=== PATIENT | female | born 1970 | race Caucasian/White ===

== ENCOUNTER 2017-09-29 10:09 | Inpatient (IN) | payer OTHER ==
[~2017-09-29] VITALS: Ht 170.2 cm; Wt 99.5 kg
[2017-09-29] MEDS ORDERED: ROCEPHIN 2GM VIAL21 IJ (14:38)
[2017-09-29] MEDS ORDERED: D-2000 90 MG-201 TAB PO (14:39)
[2017-09-29] MEDS ORDERED: SENOKOT S 50 MG1 TAB PO (14:40)
[2017-09-29] MEDS ORDERED: B-12 100 MCG (14:40)
[2017-09-29] MEDS ORDERED: PROZAC60 MG (14:41)
[2017-09-29] MEDS ORDERED: MUCINEX 60600 MG/TA1 PO (14:41)
[2017-09-29] MEDS ORDERED: SOLU-MEDRO125 MG/21 IJ (14:42)
[2017-09-29] MEDS ORDERED: PROTONIX 40MG T40 MG PO (14:43)
[2017-09-29] MEDS ORDERED: DESYREL 100MG100 MG PO (14:43)
[2017-09-29] MEDS ORDERED: VIIBRYD40 MG PO (14:44)
[2017-09-29] MEDS ORDERED: ROBAXIN 50500 MG/TAB PO (14:50)
[2017-09-29] MEDS ORDERED: TYLENOL 325MG325 MG PO (14:51)
[2017-09-29] MEDS ORDERED: RT ALBUTER2.5 MG/0.5 IH (14:53)
[2017-09-29 16:45] VITALS: BP 121/73; PULSE 63; TEMP 98.4
[2017-09-29 16:47] VITALS: BP 121/76; PULSE 79; TEMP 98.4
[2017-09-29 19:21] VITALS: BP 104/63; PULSE 66; TEMP 98.4
[2017-09-29 23:20] VITALS: BP 123/71; PULSE 58; TEMP 98.2
[2017-09-30 03:30] VITALS: BP 124/71; PULSE 51; TEMP 97.9
[2017-09-30 06:59] LABS: MEAN CELL VOLUME 93 fl (80.0-100.0); MEAN CORPUSCULAR HGB CONC 33 g/dl (33.0-37.0); PLATELET COUNT 198 K/mm3 (130-400); RED BLOOD COUNT 3.83 M/mm3 (4.10-5.30); REDCELL DISTRIBUTION WIDTH-CV 12.8 % (11.5-14.5)
[2017-09-30 07:02] LABS: HEMATOCRIT 35.6 % (37.0-47.0); HEMOGLOBIN 11.7 g/dl (12.5-16.0); MEAN CORPUSCULAR HEMOGLOBIN 31 pg (27.0-31.0)
[2017-09-30 07:26] LABS: ALBUMIN 3.2 gm/dL (3.5-5.0); BILIRUBIN,TOTAL 0.3 mg/dL (0.0-1.0); C-REACTIVE PROTEIN 1.8 mg/dL (0.0-0.9); CALCIUM 8.7 mg/dL (8.4-10.2); CREATININE, serum 0.56 mg/dL (0.52-1.25); POTASSIUM 4.1 mmol/L (3.4-5.0); TOTAL PROTEIN 6.1 gm/dL (6.4-8.2)
[2017-09-30 07:39] VITALS: BP 105/58; PULSE 49; TEMP 97.9
[2017-09-30 08:35] LABS: BAND 24 % (0-10); HYPOCHROMIA 1+; LYMPHOCYTE 9 % (20.0-51.0); NEUTROPHILS 67 % (42.0-75.2); PLATELET ESTIMATE NORMAL (NORMAL)
[2017-09-30 08:36] LABS: ERYTHROCYTE SEDIMENTATION RATE 14 mm/hr (0-20)
[2017-09-30 12:04] VITALS: BP 116/64; PULSE 80; TEMP 98.2
[2017-09-30 13:44] LABS: RHEUMATOID FACTOR-SCREEN <15 IU/mL (0-29)
[2017-09-30 13:59] LABS: PROCALCITONIN 0.02 ng/mL (0.00-0.09)
[2017-09-30 16:00] LABS: ALBUMIN 3.9 gm/dL (3.5-5.0); BILIRUBIN,TOTAL 0.5 mg/dL (0.0-1.0); CALCIUM 9.1 mg/dL (8.4-10.2); CREATININE, serum 0.67 mg/dL (0.52-1.25); POTASSIUM 3.9 mmol/L (3.4-5.0); TOTAL PROTEIN 6.9 gm/dL (6.4-8.2)
[2017-09-30 16:35] VITALS: BP 119/66; PULSE 60; TEMP 97.4
[2017-09-30 21:09] LABS: ANA SCREEN with REFLEX Negative (Negative)
[2017-09-30 21:23] VITALS: BP 119/72; PULSE 61; TEMP 98.3
[2017-09-30 23:43] VITALS: BP 101/51; PULSE 73; TEMP 98.2
[2017-10-01] VITALS (7 sets, daily range): BP systolic 77–134; BP diastolic 46–82; PULSE 52–76; TEMP 97.9–98.5
[2017-10-01 06:31] LABS: EOS % 0.3 % (0-4.0); GRAN # 5.1 (1.4-6.5); LYMPH # 1.8 (1.2-3.4); LYMPH % 23.2 % (20.0-51.0); MEAN CELL VOLUME 95 fl (80.0-100.0); MEAN CORPUSCULAR HGB CONC 32 g/dl (33.0-37.0); MEAN PLATELET VOLUME 9.4 fl (7.4-10.4); MONO # 0.6 (0.1-0.6); MONO % 8.3 % (1.7-9.3); PLATELET COUNT 192 K/mm3 (130-400); REDCELL DISTRIBUTION WIDTH-CV 12.9 % (11.5-14.5)
[2017-10-01 06:44] LABS: HEMATOCRIT 34.2 % (37.0-47.0); HEMOGLOBIN 10.8 g/dl (12.5-16.0); MEAN CORPUSCULAR HEMOGLOBIN 30 pg (27.0-31.0)
[2017-10-01 06:46] LABS: CALCIUM 8.2 mg/dL (8.4-10.2); CREATININE, serum 0.72 mg/dL (0.52-1.25); POTASSIUM 3.8 mmol/L (3.4-5.0)
[2017-10-01 11:43] LABS: ANGIOTENSIN CONVERTING ENZYME 23 U/L (8 - 53)
[2017-10-02 01:16] VITALS: BP 114/72; PULSE 53; TEMP 98.1
[2017-10-02 04:51] VITALS: BP 101/59; PULSE 63
[2017-10-02] MEDS ORDERED: CEFTIN500 MG PO (07:24)
[2017-10-02] MEDS ORDERED: MUCINEX1200 MG PO (07:25)
[2017-10-02] MEDS ORDERED: PREDNISONE20 MG PO (07:30)
[2017-10-02 07:35] VITALS: BP 103/56; PULSE 56; TEMP 97.8
[2017-10-02 08:52] LABS: BASO % 0.2 % (0.0-2.0); EOS % 0.3 % (0-4.0); GRAN # 4.5 (1.4-6.5); GRAN % 69.6 % (42.2-75.2); HEMATOCRIT 37.5 % (37.0-47.0); HEMOGLOBIN 12.4 g/dl (12.5-16.0); LYMPH # 1.3 (1.2-3.4); LYMPH % 20.6 % (20.0-51.0); MEAN CELL VOLUME 92 fl (80.0-100.0); MEAN CORPUSCULAR HEMOGLOBIN 30 pg (27.0-31.0); MEAN CORPUSCULAR HGB CONC 33 g/dl (33.0-37.0); MEAN PLATELET VOLUME 9.3 fl (7.4-10.4); MONO # 0.4 (0.1-0.6); MONO % 6.8 % (1.7-9.3); PLATELET COUNT 232 K/mm3 (130-400); RED BLOOD COUNT 4.09 M/mm3 (4.10-5.30); REDCELL DISTRIBUTION WIDTH-CV 12.8 % (11.5-14.5)
[2017-10-02 09:08] LABS: CALCIUM 8.8 mg/dL (8.4-10.2); CREATININE, serum 0.65 mg/dL (0.52-1.25); POTASSIUM 3.6 mmol/L (3.4-5.0)
== END 2017-10-02 12:38 | disposition home or self-care (01) | DRG 193 ==
LOC: MEDICAL 10:09
PROVIDERS: Internal Medicine; Internal Medicine Pulmonary Disease; Physician Assistant
DX: J18.9 Pneumonia, unspecified organism (principal); J96.01 Acute respiratory failure with hypoxia; Z98.0 Intestinal bypass and anastomosis status; F39 Unspecified mood [affective] disorder; K21.9 Gastro-esophageal reflux disease without esophagitis
CPT/HCPCS: 99232-AI; 99239; J0696; J2920; J3370; J3420; J7050; J7512